=== PATIENT | female | born 1960 | race Two or more races ===

== ENCOUNTER → 2023-03-21 08:00 | Outpatient (CLI) | payer OTHER ==
[~2023-03-21 08:00] MED LIST: CAMBIA50 MG PO; DARIFENACIN ER15 MG PO; SYNTHROID125 MCG PO; SYNTHROID137 MCG PO
== END | disposition home or self-care (01) ==
LOC: EKG 08:00 → CIR.AMB 08:45 → ADM 08:45 → EDSTATUS 08:45
PROVIDERS: ATTEND Obstetrics & Gynecology Gynecology
DX: N85.01 Benign endometrial hyperplasia (principal)